=== PATIENT | female | born 1955 | race African-American/Black ===

== ENCOUNTER 2018-10-15 08:37 | Inpatient (IN) ==
[2018-10-15] MEDS ORDERED: DUONEB (A & A) INH ONE (09:10)
[2018-10-15] MEDS ORDERED: NS 1,000 ML IV ONE ×2 (09:10→13:06)
--- NOTE | 2018-10-15 09:13 | PROVIDER DOCUMENTATION ---
HPI-General Adult - General Chief Complaint: Shortness of Breath Stated Complaint: ASTHMA Time Seen by Provider: 10/15/18 08:56 Source: patient, family Allergies/Adverse Reactions: Patient Allergies Allergy/AdvReac Type Severity Reaction Status Date / Time nut - unspecified Allergy RASH Verified 09/11/18 20:20 celecoxib [From Celebrex] AdvReac VOMITING Verified 09/11/18 20:20 ? BP med Allergy Unknown Uncoded 09/11/18 20:20 Home Medications: Home Medication List Medication Instructions Recorded Confirmed Last Taken Type ATORVAstatin [Lipitor] 1 tab PO QPM 09/11/18 10/15/18 Unknown History Aspirin [Aspir-Low] 1 tab PO DAILY 09/11/18 10/15/18 Unknown History Carisoprodol [Soma] 1 tab PO TID 09/11/18 10/15/18 Unknown History Carvedilol Phosphate [Coreg Cr] 40 mg PO QHS 09/11/18 10/15/18 Unknown History Diphenhydramine [Benadryl] 2 cap PO QHS 09/11/18 10/15/18 Unknown History Hydrocodone/Acetaminophen [[place] 1 tab PO TID 09/11/18 10/15/18 Unknown History 10-325 Tablet] Lisinopril 1 tab PO QHS 09/11/18 10/15/18 Unknown History Omeprazole [Prilosec] 1 cap PO BID 09/11/18 10/15/18 Unknown History Tizanidine [Zanaflex] 1 tab PO TID 09/11/18 10/15/18 Unknown History Torsemide 40 tab PO DIRECTED 09/11/18 10/15/18 10/14/18 History 80mg Trospium Chloride [Trospium 1 cap PO DAILY 09/11/18 10/15/18 Unknown History Chloride ER] Benzonatate 1 tab PO TID PRN 10/15/18 10/15/18 Unknown History Ciprofloxacin HCl [Cipro] 500 mg PO BID #10 tab 10/15/18 Unknown Rx Ferrous Sulfate [Iron] 325 mg PO DAILY 10/15/18 10/15/18 Unknown History Insulin Degludec [Tresiba 30 units SUBQ DAILY 10/15/18 10/15/18 Unknown History Flextouch U-100] Ipratropium/Albuterol Sulfate 3 ml INHALATION Q4H 10/15/18 10/15/18 Unknown History [Iprat-Albut 0.5-3(2.5) mg/3 ml] Loratadine 1 tab PO DAILY 10/15/18 10/15/18 Unknown History Magnesium Oxide [Mag-Ox] 1 tab PO DAILY 10/15/18 10/15/18 Unknown History Ondansetron [Zofran] 8 mg PO TID PRN PRN 10/15/18 10/15/18 Unknown History Prochlorperazine [Compazine] 1 tab PO Q6H PRN 10/15/18 10/15/18 Unknown History Semaglutide [Ozempic] 0.25 mg SUBQ DIRECTED 10/15/18 10/15/18 Unknown History Sennosides [Senna Lax] 2 tab PO QHS PRN 10/15/18 10/15/18 Unknown History Tramadol [Ultram] 1 tab PO Q6H PRN 10/15/18 10/15/18 Unknown History - History of Present Illness -Gen Adult Nature of Presenting Problems: a 62 y/o female presents with c/o sob and weakness since this morning. The pt also has been having OSB with minimal exertion. Pt took some marijuana for her cancer pain and felt SOB And took a breathing treatment and it did not help so called EMS. Pt has cough here and there, denies any fever. Has some nausea and mild abd pain which is unchanged from before. denies any urinary symptoms. Pt completed her 3rd chemo cycle 12 days ago. Associated Symptoms: reports: cough, fatigue, nausea, shortness of breath. denies: chest pain, constipation, dizziness, fever/chills, genitourinary problems Review of Systems - Adult - REVIEW OF SYSTEMS - ADULT Constitutional: reports: see HPI Eyes: denies: no symptoms reported Ears, Nose, Mouth & Throat: denies: no symptoms reported Cardiovascular: reports: see HPI Respiratory: reports: see HPI Gastrointestinal: reports: see HPI Genitourinary: denies: no symptoms reported Musculoskeletal: denies: no symptoms reported Integumentary: denies: no symptoms reported Neurological: denies: no symptoms reported Psychiatric: denies: no symptoms reported Endocrine: denies: no symptoms reported Hematologic/Lymphatic: denies: no symptoms reported Allergic/Immunologic: denies: no symptoms reported Past History - Adult - PAST MEDICAL HISTORY-ADULT Review of Records: reports: Old Records Reviewed, Nursing Assessment Review, Medications Reviewed, Social history reviewed & non-contributory. Cardiovascular: reports: arrhythmia, CHF, pacemaker Genitourinary: reports: denies history Musculoskeletal: reports: denies history Neurological: reports: denies history Psychiatric: reports: denies history Endocrine/Immune: reports: denies history Other Conditions: reports: denies history Physical Exam-General - PHYSICAL EXAM-ADULT Initial Vital Signs Reviewed: Yes - CONSTITUTIONAL General Appearance: appears well, alert, no apparent distress - EYES Eyes: PERRL/EOMI - HEAD, EARS, NOSE, MOUTH & THROAT HENMT: normocephalic/atraumatic, normal ENT inspection, pharynx normal. negative: moist mucous membranes, pharyngeal erythema - NECK Neck: supple - RESPIRATORY Respiratory: lungs clear, normal breath sounds, no respiratory distress, no accessory muscle use - CARDIOVASCULAR Cardiovascular: regular rate, rhythm, no edema, no JVD, no murmur - GASTROINTESTINAL (ABDOMEN) Abdominal Exam: non tender, soft - MUSCULOSKELETAL Back Exam: no CVA tenderness, no vertebral tenderness Extremity: normal inspection, no pedal edema Peripheral Pulses: radial (R): 2+, radial (L): 2+ - SKIN Integumentary: normal color, warm/dry - NEUROLOGIC Neurologic: grossly normal, no motor/sensory deficits - PSYCHIATRIC Psych/Mental Status: normal mood/affect, normal thought content, normal thought process, oriented x 3 Progress - PLAN OF CARE/RESULTS Progress/Plan/Lab Results: Vital Signs - 8 hr 10/15/18 08:53 Temperature 98.0 F Pulse Rate 71 Respiratory Rate 16 Blood Pressure 103/65 O2 Sat by Pulse Oximetry 100 Orders Category Date Time Status CHEST-PORTABLE [RAD] Stat Exams 10/15/18 09:10 Ordered BLOOD CULTURE [BLDCUL] Stat Lab 10/15/18 09:10 Uncollected CBC WITH DIFF [HEME] Stat Lab 10/15/18 09:10 Uncollected COMPREHENSIVE METABOLIC PANEL [CHEM] Stat Lab 10/15/18 09:10 Uncollected LACTATE, PLASMA [CHEM] Stat Lab 10/15/18 09:10 Uncollected PRO B-NATRIURETIC PEPTIDE Stat Lab 10/15/18 09:11 Uncollected UA NIMS W/REFLEX CULT [URINALYSIS] Stat Lab 10/15/18 09:11 Uncollected Albuterol 2.5MG/Ipratrop 0.5MG [Duoneb (A & A)] Med 10/15/18 09:10 Once 3 ml INH NOW ONE Ns 1000 ml IV Bolus X1 Med 10/15/18 09:10 Ordered 0.9% Sodium Chloride Inj [Ns] 1,000 ml IV 999 mls/hr Aerosol Treatments Routine Oth 10/15/18 09:11 Ordered Aerosol Treatments Stat Oth 10/15/18 09:11 Ordered Pulse Oximetry Stat Oth 10/15/18 09:10 Ordered The pt has elevated BNP but no lung or peripheral findings of CHF on exam. Pt SOB and weakness improved after fluids. d/w Dr Felder oncology, will d/c on cipro and close f/u instructions. Result Diagrams: 10/15/18 09:18 10/15/18 09:18 - REASSESSMENT Reassessment #1 Time Reassessed: 12:30 Status: other (pt was about to be discharged and his discharge vitals revealed a SBP in 60's. will administer a 500 cc slowly as pt has elevated BNP and reevaluate.) Reassessment #2 Time Reassessed: 14:20 Status: unchanged (will admit, start levaquin. continue IVF ad monitor BNP. Hospitalist paged.) - EKG 1 Time of EKG reading by physician:: 09:16 EKG Read and Signed by:: Jerome Kwan EKG Interpretation (*Must complete 3 of following elements*): Abnormal Rate: 69 Rhythm: SINUS RHYTHM WITH FREQUENT PREMATURE VENTRICULAR COMPLEXES [place]: normal QRS: LBB CA Interval: normal Comments: ABNORMAL ECG 2 Time of EKG reading by physician:: 14:05 EKG Read and Signed by:: Jerome Kwan EKG Interpretation (*Must complete 3 of following elements*): Abnormal Rate: 69 Rhythm: sinus rhythm with frequent premature ventricular complexes [place]: normal CA Interval: normal Comments: nonspecific ST and T wave abnormality; prolonged QT - CONSULTS/PCP/HOSPITALIST Notification #1 *Consult/PCP/Hospitalist*: d/w Dr Felder, Oncology Time Discussed: 12:00 Consult Disposition: other (advised prophylactic abxs, po cipro 500 bid x5 days. f/u with PCP.) #2 Consult: NEIDA Magdaleno for hospitalist Time Discussed: 15:10 Consult Disposition: Admit Departure - Departure Date of Disposition Decision: 10/15/18 Time of Disposition Decision: 15:00 DIAGNOSIS: Neutropenia, Dehydration, Generalized weakness, Elevated brain natriuretic peptide (BNP) level, Hypotension Disposition: ADMITTED INPATIENT Certified Medical Emergency: Emergent Condition: Stable Prescriptions: Ciprofloxacin HCl [Cipro] 500 mg PO BID #10 tab Referrals and Follow-Ups: None,PCP [Primary Care Provider] - Discharge Education: Dehydration, Adult, [id number], Neutropenia - Critical Care Note This patient required my direct & personal management of CC.: No Attestation - Physician/ RIO Attestation Patient care was provided by Advanced Practice Provider:: No The physician spent face to face time with patient:: Yes Advanced Practice Provider documentation review:: Supervising physician onsite and consulted in the evaluation and care of this patient. The physician did have a face to face encounter with the patient.
--- NOTE | 2018-10-15 09:41 | Diag Imaging Result Doc PS360 ---
CHEST-PORTABLE - 10/15/2018 INDICATION: cough COMPARISON: 09/11/2018 FINDINGS: Stable left-sided pacemaker. Stable mild cardiomegaly. Pulmonary vascularity is top normal. Lung volumes are severely low. No obvious infiltrates or edema. IMPRESSION: Cardiomegaly. Low lung volumes. Electronically signed by Osiel Melchor 10/15/2018 9:39 AM
[2018-10-15 10:04] LABS: BASO# 0.01 X1000 (0.0-0.2); BASO% 0.3 % (0.0-0.8); EOS# 0.03 X1000 (0.0-0.7); LYMPH# 2.47 X1000 (1.2-3.4); LYMPH% 80.2 % (20.5-51.1); MCH 29.9 PG (27-31); MCHC 33.3 g/dL (33-37); MCV 89.7 FL (81-99); MONO# 0.45 X1000 (0.11-0.59); MONO% 14.6 % (1.7-9.3); MPV 11.4 FL (7.4-10.4); NEUT# 0.12 X1000 (1.4-6.5); NEUT% 3.9 % (42.2-75.2); PLT 135 X1000 (130-400); RBC 3.68 XMIL (4.2-5.4); WBC 3.08 X1000 (4.8-10.8)
[2018-10-15 10:12] LABS: ALB/GLOB RATIO 1.5; ALBUMIN 3.7 g/dL (3.5-5.0); CALCIUM 8.9 mg/dL (8.8-10.2); CREATININE 1.2 mg/dL (0.5-0.9); POTASSIUM 4.2 mmol/L (3.5-5.1); TOTAL BILIRUBIN 0.3 mg/dL (0.20-1.00); TOTAL PROTEIN 6.2 g/dL (6.3-8.3)
[2018-10-15 10:17] LABS: URINE SOURCE CATH
[2018-10-15 10:19] LABS: BILIRUBIN URINE NEGATIVE (NEGATIVE); BLOOD URINE NEGATIVE (NEGATIVE); COLOR YELLOW; GLUCOSE URINE NEGATIVE (NEGATIVE); KETONE URINE NEGATIVE (NEGATIVE); LEUKOCYTES URINE NEGATIVE (NEGATIVE); NITRITE URINE NEGATIVE (NEGATIVE); PROTEIN URINE TRACE mg/dL (NEGATIVE); SP GRAVITY URINE 1.019; TURBIDITY URINE CLEAR (CLEAR); UROBILINOGEN URINE 2 mg/dL (NORMAL)
[2018-10-15 10:20] LABS: UR EPITHELIAL CELLS <10 /HPF (<10); URINE BACTERIA NEGATIVE /HPF; URINE RBC <10 /HPF (<10); URINE WBC <10 /HPF (<10)
[2018-10-15 10:37] LABS: HOWELL-JOLLY BODIES OCCASIONAL; LYMPHS 80 % (21-51); MONO 15 % (1-9); SEGS 5 % (42-75)
[2018-10-15 10:38] LABS: ANISOCYTOSIS 1+
[2018-10-15] MEDS ORDERED: DUONEB (A & A) INH PRN (15:56)
[2018-10-15] MEDS ORDERED: ROBITUSSIN-AC PO PRN (15:57)
[2018-10-15 16:06] LABS: UR AMPHETAMINES QUAL NONE DETECTED (NONE DETECT); UR BARBITUATES QUAL NONE DETECTED (NONE DETECT); UR BENZODIAZEPIN QUAL NONE DETECTED (NONE DETECT); UR CANNABINOIDS QUAL PRESUMPTIVE POSITIVE (NONE DETECT); UR COCAINE QUAL NONE DETECTED (NONE DETECT); UR METHADONE QUAL NONE DETECTED (NONE DETECT); UR OPIATES QUAL PRESUMPTIVE POSITIVE (NONE DETECT); UR OXYCODONE QUAL NONE DETECTED (NONE DETECT); UR PCP QUAL NONE DETECTED (NONE DETECT)
[2018-10-15] MEDS: HUMALOG SUBQ SCH ×2 (16:30→22:48)
[2018-10-15] MEDS ORDERED: SODIUM CHLORIDE 0.9% INJ SCH (17:00)
[2018-10-15] MEDS: LEVAQUIN 750 MG/D5W 750 MG/150 ML IVPB IV SCH (17:58)
[2018-10-15] MEDS: SOLU-MEDROL IV SCH ×2 (18:00→22:47)
[2018-10-15] MEDS ORDERED: LEVOPHED 8 MG in D5 1/2 NS 250 ML IV PRN (19:12)
[2018-10-15] MEDS: DUONEB (A & A) INH SCH ×2 (19:14→23:22)
[2018-10-15] MEDS ORDERED: LOVENOX 1 MG/KG SUBQ ONE (19:17)
[2018-10-15] MEDS ORDERED: LOVENOX SUBQ ONE (19:30)
--- NOTE | 2018-10-15 20:17 | HISTORY AND PHYSICAL ---
CHIEF COMPLAINT: Shortness of breath. HISTORY OF PRESENT ILLNESS: This is a 62-year-old female with a history of liver and ovarian cancer currently on chemotherapy, having her 3rd cycle 12 days ago. She reports being diagnosed with URI, bronchitis and Asthma exacerbation 2 days prior to chemo. She was given a steroid Dosepak and Augmentin. She reports completing the Augmentin prescription. She has been more tired and weak over the last few days. .This morning she was smoking marijuana for her cancer pain and she had a sudden onset of shortness of breath, feeling that she was not going to take her next breath. She called EMS. She was placed on oxygen en route. She stated that she felt much better after having oxygen in fact at the time of my exam she was concerned about having to take it off. She was given a neb treatment en route as well as one on arrival to the emergency room. Chest x-ray revealed cardiomegaly with low lung volumes. PAST MEDICAL HISTORY: 1. Asthma. 2. Uterine and liver cancer. 3. Congestive heart failure subsequent pacemaker and defibrillator, cardiomegaly, ventricular dysrhythmias. PAST SURGICAL HISTORY: Cataract removal, gastric bypass, pacemaker, defibrillator placement. SOCIAL HISTORY: She smokes marijuana daily. She denies any alcohol or tobacco use. ALLERGIES: Nuts that cause rash, Celebrex causes vomiting and blood pressure medicine that causes an unknown reaction with unknown blood pressure medicine. HOME MEDICATIONS: A list will be obtained by the nursing staff and once verified will be restarted as appropriate. REVIEW OF SYSTEMS: Discussed with patient with pertinent positives stated in the HPI. She denied any syncope or dizziness, any chest pain or palpitations, any nausea, vomiting, diarrhea, constipation, black or bloody vomitus or stools, any hematuria, dysuria, frequency, urgency. PHYSICAL EXAMINATION: GENERAL: This is a 62-year-old female who is lying on the stretcher in the emergency room in mild distress. VITAL SIGNS: Blood pressure is 109/63 with a heart rate 75, respirations are 16, temperature is 98 degrees with O2 saturations 96 to 100 percent on 4 L nasal cannula. HEENT: Head is normocephalic, atraumatic. Mucous membranes are dry. NECK: Supple with trachea midline. No JVD. CARDIOVASCULAR: Regular rate and rhythm. S1 and S2 are appreciated. Calves are nontender bilateral with peripheral pulses palpable x4 extremities. PULMONARY: Breath sounds she does have some expiratory wheezes scattered throughout. Chest rises and falls symmetric with respiration. She does have mild increased work of breathing. She has persistent cough. GASTROINTESTINAL: Soft, nontender, nondistended. Bowel sounds in all 4 quadrants. GENITOURINARY: She has no CVA or suprapubic tenderness. SKIN: Warm and dry. NEUROLOGIC: She is alert and oriented. LABS: WBC is 3 with hemoglobin 11, hematocrit 33 and platelets of 135,000, neutrophils are 0.12. D-dimer is 0.76. Sodium 142, potassium 4.2, BUN 26, creatinine 1.2 with a glucose of 150. Troponins are negative. Urine drug screen is positive for opiates and cannabinoids. Urinalysis is essentially negative. Blood culture is pending. Chest x-ray reveals cardiomegaly with low lung volumes. ASSESSMENT AND PLAN: 1. Neutropenia in a patient who is 10 to 12 days status post chemotherapy. 2. Dehydration. 3. Generalized weakness. Ms Mcdonnell states that she is not able to get out of bed or stand due to this weakness. At the time of my interview she has to have help turning herself over from side to side in the bed. 4. Hypotension. 5. History of congestive heart failure status post implantable cardioverter defibrillator due to reported ejection fraction and ventricular dysrhythmias. 6. Uterine and liver cancer currently receiving chemotherapy. She is 12 days status post being followed by the [facility]. 7. Diabetes mellitus. 8. Hypertension. 9. Degenerative back disease with chronic pain on chronic [place]. PLAN: The patient will be admitted to ICU with telemetry. Levophed for a MAP less than 60. obtain an echocardiogram. attempt to obtain her records from hospital in [place] identify her home medications and continue as appropriate pattern blood glucose with sliding scale insulin. trend her troponin and cardiac profile. DuoNeb q.4 hours and q.2 hours p.r.n. peak flows. low-dose steroids, Mucinex DM b.i.d.,Robitussin AC for her cough neutropenic precautions with a neutropenic diet. Plan was discussed with Dr. Tran. Further treatments pending hospital course. Patient seen and examined by me face to face, all the laboratory, vitals signs and images were reviewed, patient presented to the emergency department with shortness of breath, that has been going on for a couple weeks, she also received chemotherapy around that time, she has been having more weakness, she fells better with the oxygen supplementation, she has a borderline low blood pressure, she will probably need pressors, steroids and antibiotics, breathing treatment, we will monitor this patient closely in the ICU, I agree with the MATERIALS HANDLER's assessment and plan, Yfn Green MD. Dictated by NEIDA Aldrich for Yfn Duke MD cc: NEIDA Aldrich MD [facility]
[2018-10-16] MEDS: NORCO-10 PO PRN ×3 (01:31→17:05)
[2018-10-16] MEDS: DUONEB (A & A) INH SCH ×4 (03:30→16:03)
[2018-10-16 04:55] LABS: BASO# 0.01 X1000 (0.0-0.2); BASO% 1.1 % (0.0-0.8); HEMATOCRIT 30.9 % (37.0-47.0); HEMOGLOBIN 10.4 g/dL (12.0-16.0); LYMPH# 0.58 X1000 (1.2-3.4); LYMPH% 65.9 % (20.5-51.1); MCH 29.8 PG (27-31); MCHC 33.7 g/dL (33-37); MCV 88.5 FL (81-99); MONO# 0.14 X1000 (0.11-0.59); MONO% 15.9 % (1.7-9.3); MPV 11.2 FL (7.4-10.4); NEUT% 17.1 % (42.2-75.2); PLT 140 X1000 (130-400); RBC 3.49 XMIL (4.2-5.4); RDW 14.7 % (11.5-14.5); WBC 0.88 X1000 (4.8-10.8)
[2018-10-16 04:57] LABS: NEUT# 0.15 X1000 (1.4-6.5)
[2018-10-16 05:19] LABS: AGAP 11; ALBUMIN 3.4 g/dL (3.5-5.0); BUN 17 mg/dL (8-22); CALCIUM 9.1 mg/dL (8.8-10.2); CHLORIDE 102 mmol/L (98-107); COSMO 284; CREATININE 0.8 mg/dL (0.5-0.9); ESTIMATED GFR > 60; GLUCOSE 224 mg/dL (70-104); PHOSPHORUS 3.7 mg/dL (2.7-4.5); POTASSIUM 4.9 mmol/L (3.5-5.1); SODIUM 138 mmol/L (136-145); TCO2 25 mmol/L (25-35)
[2018-10-16] MEDS: SOLU-MEDROL IV SCH ×4 (06:14→20:51)
[2018-10-16] MEDS: PROTONIX IV SCH (06:14)
[2018-10-16] MEDS: HUMALOG SUBQ SCH ×4 (06:14→21:06)
[2018-10-16] MEDS ORDERED: SENOKOT PO PRN (07:25)
--- NOTE | 2018-10-16 08:13 | PROGRESS NOTE ---
DATE: 10/16/2018 SUBJECTIVE: As per the patient, she feels a little bit better. She is tolerating a little bit better p.o. and she still coughing but not like yesterday. I will put this patient back on some of her home medications. She has a history of CHF, status post implantable cardioverter- defibrillator. I have requested an echocardiogram for this patient. Her D-dimer is slightly elevated at 0.76. A venous Doppler ultrasound of the lower extremities has been requested as well as a V/Q scan. Yesterday, she came in with acute kidney injury. She is neutropenic. She has been getting chemotherapy. Her last chemotherapy was a couple weeks ago. I have requested an evaluation by hematology/oncology department. OBJECTIVE: Vital Signs: Temperature 96, pulse 67, respiratory rate 17, blood pressure 108/62, oxygen saturation 96% on 2 L of nasal cannula. HEENT: Head normocephalic. No trauma. PERRLA. Neck: Supple. No JVD. Central trachea. Chest: Decreased breath sounds, mostly at the bases. She does have some expiratory wheezing that is scattered throughout. Some crepitus at the bases as well. Abdomen: Soft, nontender, nondistended. No hepatosplenomegaly. Extremities: No clubbing. No cyanosis. Neurological Examination: This patient is sleepy but arousable. She is alert. She is oriented x3. She is following commands. Laboratory: WBC 0.8, hemoglobin 10.4, hematocrit 30.9, platelets 140,000, neutrophil count 0.15. Sodium 138, potassium 4.9, chloride 102, bicarbonate 25, BUN 17, creatinine 0.8, glucose 224, calcium 9.1, phosphorus 3.7, albumin 3.4. ASSESSMENT AND PLAN: 1. Bronchitis with asthma exacerbation. It looks like the treatment is working fine for her. I will continue with antibiotics, breathing treatments, oxygen supplementation, pulmonary toilet. 2. Neutropenia in a patient that is status post chemotherapy 2 weeks ago. She moved recently to this area and she does not have a timber buyer/oncologist here so I will consult Dr. Felder to evaluate this patient. 3. Dehydration. She looks hydrated today. Resolved. 4. Acute kidney injury, resolved. I will put her back on her home medications. 5. Hypotension, improved after fluid resuscitation. I will hold her torsemide today and I will start this treatment tomorrow. 6. Metastatic uterine cancer to the liver, status post chemotherapy. She has been followed by the [facility] at [facility] [place]. 7. History of congestive heart failure, status post implantable cardioverter/defibrillator, due to reported low ejection fraction and ventricular dysrhythmia. I will get an echocardiogram. We also requested some records. 8. Type 2 diabetes. She has not been eating too much recently. I will continue with sliding scale insulin and pattern of blood sugar. Her blood sugar increased compared with yesterday. It is above 200 so I will start this patient also on her home medication, insulin degludec, and I will monitor. 9. Hypertension. Actually, this patient has been hypotensive. Better after fluid resuscitation. We will monitor the blood pressure. 10. Degenerative back disease and chronic pain, on chronic [place]. CRITICAL CARE TIME: Thirty minutes. cc: Yfn Duke MD
[2018-10-16] MEDS: MUCINEX DM PO SCH ×3 (08:32→20:51)
[2018-10-16] MEDS: ZOFRAN IV PRN (08:33)
[2018-10-16] MEDS: ASPIRIN EC PO SCH (08:33)
[2018-10-16] MEDS: DEMADEX PO SCH (08:33)
[2018-10-16] MEDS: CLARITIN PO SCH (08:33)
[2018-10-16] MEDS: TRESIBA FLEXTOUCH U-100 SUBQ SCH (08:34)
[2018-10-16] MEDS: MAG-OX PO SCH (08:34)
[2018-10-16] MEDS: SOMA PO SCH ×3 (08:34→16:56)
--- NOTE | 2018-10-16 08:53 | EKG Report ---
Test Performed on : 10/15/2018 2:05:37 PM Test Reason : ED. No order in [place] Blood Pressure : / mmHG Vent. Rate : 069 BPM Atrial Rate : 069 BPM P-R Int : 178 ms QRS Dur : 104 ms QT Int : 452 ms P-R-T Axes : 052 -18 104 degrees QTc Int : 484 ms Sinus rhythm. with frequent premature ventricular complexes. Nonspecific ST and T wave abnormality Prolonged QT Abnormal ECG When compared with ECG of 15-OCT-2018 09:16, (Unconfirmed) Left bundle branch block is no longer present Unconfirmed Result
--- NOTE | 2018-10-16 08:53 | EKG Report ---
Test Performed on : 10/15/2018 09:16:38 AM Test Reason : sob Blood Pressure : / mmHG Vent. Rate : 069 BPM Atrial Rate : 069 BPM P-R Int : 184 ms QRS Dur : 168 ms QT Int : 446 ms P-R-T Axes : 056 -12 090 degrees QTc Int : 477 ms Sinus rhythm. with frequent premature ventricular complexes. Left bundle branch block Abnormal ECG When compared with ECG of 11-SEP-2018 19:44, (Unconfirmed) No significant change was found Unconfirmed Result
--- NOTE | 2018-10-16 09:52 | ECHO REPORT ---
ORDER DATE: 10/15/2018 INTERPRETING PHYSICIAN: Dr. Abel REQUESTING PHYSICIAN: CLINICAL INDICATIONS: This is a 62-year-old female with CHF, dyspnea. M-MODE MEASUREMENTS: Right ventricle: cm. Left ventricle end diastole: 6.6 cm. Left ventricle end systole: 6.0 cm. Posterior wall: 1.1 cm. Interventricular septum: 1.3 cm. Left atrium: 5.6 cm. Aortic root: 2.5 cm. SUMMARY OF 2-DIMENSIONAL IMAGIN. The left ventricular function is significantly impaired, estimated at 25% to 30%. There is segmental and global wall motion abnormality. The segmental abnormality appears to be involving the inferior wall. The remaining portion of the left ventricle is significantly hypokinetic and the chamber is Left ventricular chamber is markedly dilated. 2. Right ventricle is mild to moderately enlarged. 3. The left atrium is moderately to significantly dilated. 4. The aortic valve has 3 cusps, they open normally. Color flow mapping is unremarkable. 5. Pulmonic valve appears to be grossly unremarkable. 6. The tricuspid valve shows minimal degree of regurgitation. 7. Pulmonary pressure could not be accurately calculated because of minimal jet of regurgitation. 8. The inferior vena cava is not dilated. 9. Mitral annulus shows some calcification. 10.Color flow mapping of mitral valve indicates moderate degree of regurgitation. 11.The tissue Doppler of septal and lateral mitral annulus averages 2 cm. 12.There is significantly impaired diastolic function. 13.There is no pericardial effusion, mass or thrombus. 14.Optison was added to optimize visualization of endocardium. CONCLUSIONS: In summary, this study shows: 1. Abnormal study with markedly dilated left ventricle with significantly impaired systolic function in the range of 25% to 30% with segmental and global wall motion abnormality. 2. Diastolic dysfunction. 3. Pulmonary pressure probably normal. 4. Unremarkable aortic valve. 5. Moderate mitral regurgitation. 6. Significant enlargement of left atrium. Clinical correlation is recommended. cc: MD Dana Ruvalcaba CRNP MTDD
--- NOTE | 2018-10-16 10:36 | Diag Imaging Result Doc PS360 ---
LUNG SCAN / VQ - 10/16/2018 INDICATION: dyspnea, cough, elevated ddimer TECHNIQUE: 41.2 mCi of DTPA was used for inhalation. 6.4 mCi of MAA was used for injection. COMPARISON: Chest x-ray 10/15/2018 FINDINGS: There is normal localization of the radiotracer's. There is no pulmonary perfusion defect. IMPRESSION: Negative for pulmonary embolism. Electronically signed by Osiel Melchor 10/16/2018 10:34 AM
[2018-10-16] MEDS: LEVAQUIN 750 MG/D5W 750 MG/150 ML IVPB IV SCH (16:56)
[2018-10-16] MEDS: LIPITOR PO SCH (20:50)
[2018-10-16] MEDS: BENADRYL PO SCH (20:50)
[2018-10-16] MEDS ORDERED: COREG CR PO SCH (21:00)
[2018-10-16] MEDS ORDERED: PRINIVIL PO SCH (21:00)
[2018-10-17] MEDS: SOLU-MEDROL IV SCH ×5 (03:56→20:28)
[2018-10-17] MEDS: NORCO-10 PO PRN ×2 (04:04→13:47)
[2018-10-17] MEDS: DUONEB (A & A) INH SCH ×7 (05:05→22:34)
[2018-10-17] MEDS: HUMALOG SUBQ SCH ×4 (06:09→21:33)
[2018-10-17] MEDS: PROTONIX IV SCH (06:09)
[2018-10-17 06:29] LABS: HEMOGLOBIN 10.4 g/dL (12.0-16.0); RBC 3.53 XMIL (4.2-5.4); WBC 1.75 X1000 (4.8-10.8)
[2018-10-17 06:30] LABS: HEMATOCRIT 31.5 % (37.0-47.0); LYMPH# 0.67 X1000 (1.2-3.4); LYMPH% 38.3 % (20.5-51.1); MCH 29.5 PG (27-31); MCV 89.2 FL (81-99); MONO# 0.52 X1000 (0.11-0.59); MONO% 29.7 % (1.7-9.3); MPV 11.3 FL (7.4-10.4); NEUT# 0.56 X1000 (1.4-6.5); PLT 150 X1000 (130-400); RDW 14.9 % (11.5-14.5)
[2018-10-17 06:39] LABS: ALB/GLOB RATIO 1.5; ALBUMIN 3.5 g/dL (3.5-5.0); CALCIUM 8.9 mg/dL (8.8-10.2); CREATININE 1.3 mg/dL (0.5-0.9); PHOSPHORUS 5.1 mg/dL (2.7-4.5); POTASSIUM 5.1 mmol/L (3.5-5.1); TOTAL BILIRUBIN 0.26 mg/dL (0.20-1.00); TOTAL PROTEIN 5.9 g/dL (6.3-8.3)
--- NOTE | 2018-10-17 07:05 | Diag Imaging Result Doc PS360 ---
CHEST-PORTABLE - 10/17/2018 INDICATION: dyspnea COMPARISON: 10/15/2018 FINDINGS: Stable left-sided pacemaker. Stable moderate cardiomegaly. Stable mild pulmonary vascular congestion. No infiltrates or edema. No significant pleural effusion. IMPRESSION: Cardiomegaly and pulmonary vascular congestion. Electronically signed by Osiel Melchor 10/17/2018 7:03 AM
[2018-10-17 07:29] LABS: LYMPHS 40 % (21-51); MONO 8 % (1-9); SEGS 52 % (42-75)
[2018-10-17] MEDS ORDERED: INSULIN PEN NEEDLES ONE (07:59)
[2018-10-17] MEDS: ZOFRAN IV PRN (08:26)
[2018-10-17] MEDS: MAG-OX PO SCH (09:58)
[2018-10-17] MEDS: TRESIBA FLEXTOUCH U-100 SUBQ SCH (09:58)
[2018-10-17] MEDS: SOMA PO SCH ×2 (09:58→13:47)
[2018-10-17] MEDS: CLARITIN PO SCH (09:58)
[2018-10-17] MEDS: ASPIRIN EC PO SCH (09:58)
[2018-10-17] MEDS: MUCINEX DM PO SCH ×2 (09:59→20:26)
[2018-10-17] MEDS: MIRALAX PO SCH (12:21)
[2018-10-17] MEDS: LACTULOSE PO SCH ×2 (12:21→20:28)
[2018-10-17] MEDS ORDERED: GRANIX SUBQ SCH (14:45)
[2018-10-17] MEDS ORDERED: SOMA PO PRN (14:48)
--- NOTE | 2018-10-17 16:29 | PROGRESS NOTE ---
DATE: 10/17/2018 SUBJECTIVE: She has no major complaints. She is pretty content. OBJECTIVE: Vital signs: Blood pressure 101/56, heart rate 75, respiratory rate 15, temperature was 97.5 degrees. Cardiovascular: Regular rate and rhythm. Pulmonary: Bilateral breath sounds. Clear to auscultation. Gastrointestinal: Soft, nontender, nondistended. Bowel sounds were positive. vital signs: Blood pressure 92/56, heart rate 69, respiratory 15, temperature 97.5 degrees. LABORATORY DATA: White count has come up it is 0.88 with a very low neutrophil count and now it is down to 1.75. Other data, hemoglobin and hematocrit 10 and 30, platelets of 150,000. Creatinine is 1.3. The patient is doing okay. PROBLEM LIST: 1. Bronchitis. Overall seems better. I think we could probably wean her steroids. 2. Neutropenia. She is improving. I think Dr. Rachel has been consulted. She has a history of metastatic uterine cancer. 3. Negative transient hypotension. We will have to be kind of careful with her blood pressure medicines I do not get a sense she is that. She is on a fairly high dose of Coreg and lisinopril and she is on Soma, need to kind of adjust her medications. I may back down on her Coreg a little bit, probably hold her lisinopril for the time being. 4. CHF. I she think she may have a history of CHF. We will adjust her medicines and follow. cc: Jorge L Costa MD MTDD
[2018-10-17] MEDS: LEVAQUIN 750 MG/D5W 750 MG/150 ML IVPB IV SCH (16:58)
[2018-10-17] MEDS: COREG PO SCH (20:25)
[2018-10-17] MEDS: BENADRYL PO SCH (20:26)
[2018-10-17] MEDS: LIPITOR PO SCH (20:27)
[2018-10-17] MEDS: PRINIVIL PO SCH (21:39)
[2018-10-18] MEDS: SOLU-MEDROL IV SCH ×3 (03:15→21:00)
[2018-10-18] MEDS: DUONEB (A & A) INH SCH ×6 (03:38→23:48)
[2018-10-18 06:21] LABS: HEMATOCRIT 30.4 % (37.0-47.0); HEMOGLOBIN 10.1 g/dL (12.0-16.0); IMM GRAN# 0.04 X1000 (0.0-0.04); IMM GRAN% 1.2 % (0.0-0.5); LYMPH# 1.01 X1000 (1.2-3.4); LYMPH% 30.7 % (20.5-51.1); MCHC 33.2 g/dL (33-37); MCV 90.2 FL (81-99); MONO# 0.65 X1000 (0.11-0.59); MONO% 19.8 % (1.7-9.3); MPV 10.9 FL (7.4-10.4); NEUT# 1.59 X1000 (1.4-6.5); NEUT% 48.3 % (42.2-75.2); PLT 141 X1000 (130-400); RBC 3.37 XMIL (4.2-5.4); RDW 15.3 % (11.5-14.5); WBC 3.29 X1000 (4.8-10.8)
[2018-10-18] MEDS: HUMALOG SUBQ SCH ×4 (06:29→22:00)
[2018-10-18 06:47] LABS: AGAP 10; BUN 19 mg/dL (8-22); CALCIUM 8.8 mg/dL (8.8-10.2); CHLORIDE 100 mmol/L (98-107); COSMO 282; CREATININE 1.1 mg/dL (0.5-0.9); ESTIMATED GFR > 60; GLUCOSE 169 mg/dL (70-104); POTASSIUM 4.9 mmol/L (3.5-5.1); SODIUM 138 mmol/L (136-145); TCO2 28 mmol/L (25-35)
[2018-10-18] MEDS: PRILOSEC PO SCH (06:49)
--- NOTE | 2018-10-18 07:30 | Extremity Venous Study ---
PROCEDURE NAME: Venous U/S Bilateral Legs - 10/16/2018 PROCEDURE PERFORMED: Bilateral lower extremity venous duplex and color flow imaging study using a [email or web address] Vivid E9 ultrasound system with a 9 L-D transducer. REFERRING PHYSICIAN: Scot. A 62-year-old female. DRIVER MANAGER: Jaqueline Huffman RVT. INDICATIONS: Leg pain and cramping with an elevated D-dimer. The patient is receiving chemotherapy. FINDINGS: The right common femoral vein and its branches, deep and superficial femoral veins were satisfactorily imaged. They had flow through them and were compressible. The right popliteal vein and the deep veins below the right knee were all compressible and had flow through them. The superficial veins in the right lower extremity were compressible throughout their length. The left common femoral vein and its branches, deep and superficial femoral veins were also satisfactorily imaged. They had flow through them and were compressible. The left popliteal vein and the deep veins below the left knee were all compressible and had flow through them. The superficial veins of the left lower extremity were compressible throughout their length. INTERPRETATION: No evidence of acute deep or superficial venous thrombosis of the bilateral lower extremities. cc: MD Dana Laguerre CRNP
[2018-10-18] MEDS: ZOFRAN IV PRN (07:50)
[2018-10-18] MEDS: NORCO-10 PO PRN (07:55)
[2018-10-18] MEDS: PRINIVIL PO SCH (09:48)
[2018-10-18] MEDS: CLARITIN PO SCH (09:49)
[2018-10-18] MEDS: LACTULOSE PO SCH ×3 (09:49→21:00)
[2018-10-18] MEDS: ASPIRIN EC PO SCH (09:49)
[2018-10-18] MEDS: MAG-OX PO SCH (09:49)
[2018-10-18] MEDS: MUCINEX DM PO SCH ×2 (09:49→21:01)
[2018-10-18] MEDS: COREG PO SCH ×2 (09:49→21:01)
[2018-10-18] MEDS: TRESIBA FLEXTOUCH U-100 SUBQ SCH (09:49)
[2018-10-18] MEDS: DEMADEX PO SCH (09:49)
[2018-10-18] MEDS: MIRALAX PO SCH (09:49)
--- NOTE | 2018-10-18 11:42 | PROGRESS NOTE ---
DATE: 10/18/2018 SUBJECTIVE: The patient reports feeling fine. Denies any fever or chills. OBJECTIVE: Vital Signs: Temperature 98.3 degrees, heart rate 79, respiratory rate 14, blood pressure 117/68, O2 saturation 99% on room air. General: This is a chronically ill-looking, 62- year-old, female, lying in bed in no acute distress. Cardiovascular: S1, S2 heard. No murmurs, gallops, or rubs. Regular rate and rhythm. Respiratory: Clear bilaterally to auscultation. No work of breathing or using accessory muscles. Abdomen: Soft, nontender to palpation. Bowel sounds present. No organomegaly. Extremities: No clubbing, cyanosis, or edema. Peripheral pulses present in both legs. Neurologic: The patient is alert and oriented x3. Moves all 4 extremities. LABORATORY DATA: White cell count 3.39, hemoglobin 10.1, hematocrit 30.4, platelets 141,000. Normal BMP. ASSESSMENT AND PLAN: 1. Acute bronchitis. Clinically, this patient is doing fine. She reports good improvement with the steroids. The patient is on Levaquin. Will continue with the same management. 2. Neutropenia. I think the condition is much better. The patient has history of metastatic uterine cancer. 3. Hypotension, resolved. Will continue with the current medications. 4. Chronic congestive heart failure. The patient is feeling fine. Denies any shortness of breath. 5. Cardiomegaly with pulmonary vascular congestion. Here in the hospital, she is receiving torsemide 40 mg by mouth every 48 hours. Will continue with the same management. cc: Malcom Colorado MD [facility]
[2018-10-18] MEDS: XANAX PO PRN ×2 (14:59→21:00)
[2018-10-18] MEDS: LEVAQUIN 750 MG/D5W 750 MG/150 ML IVPB IV SCH (16:43)
--- NOTE | 2018-10-18 19:49 | HEMO/ONC CONSULTATION ---
DATE: 10/18/2018 REASON FOR CONSULTATION: Consultation requested by the Hospitalist service. Consultation is for metastatic uterine cancer, patient currently on chemotherapy. HISTORY OF PRESENT ILLNESS: Ms. Mcdonnell is a 62-year-old female who is currently receiving chemotherapy treatments for her metastatic uterine cancer down at the [facility]. It looks like she presented to the emergency department with an upper respiratory infection, bronchitis and acute asthma exacerbation. She was found to have neutropenia as well upon workup. She has now been admitted for further evaluation and treatment. We have been consulted to assist as local oncologist, as her primary oncologist is at [facility]. PAST MEDICAL HISTORY: 1. Positive for asthma. 2. Uterine cancer. This has metastasized. She is currently receiving chemotherapy at [facility]. 3. Congestive heart failure. Status post pacemaker and defibrillator placement. PAST SURGICAL HISTORY: 1. Cataract removal. 2. Gastric bypass. 3. Pacemaker and defibrillator placement. SOCIAL HISTORY: The patient smokes marijuana daily to help with her symptoms and side effects of chemotherapy and cancer. She denies any alcohol or tobacco use. FAMILY HISTORY: No family history of cancer. REVIEW OF SYSTEMS: Twelve point review of systems has been completed and is negative except for as expressed in the HPI. PHYSICAL EXAMINATION: Vital Signs: Temperature 98.1 degrees, heart rate 86, respirations 17, blood pressure 116/73, O2 saturation 100% on room air. General: This is an female lying in her hospital bed. She is in no acute distress at this time. HEENT: Head normocephalic, atraumatic. Eyes: Pupils equal, round, reactive. Ears, nose, throat, neck, mouth mucosa appears to be normal. Cardiovascular: S1, S2 heard. Respiratory: No respiratory effort. Gastrointestinal: Is nondistended. Musculoskeletal: No obvious bony abnormalities. Extremities: Some trace edema. Neurologic: Patient is alert and oriented. No focal motor deficits. LABS AND STUDIES: White blood cells 3.29, hemoglobin 10.1, platelet count 141,000, ANC is 1.5. ASSESSMENT AND PLAN: 1. Metastatic uterine cancer. The patient will need to follow back up at [facility]. They will need to be the ones to make the decision when she can receive her next cycle of treatment. [facility] is her primary oncologist. 2. Neutropenia, resolved. The patient's neutrophil count is now normal. No longer need to do neutropenic precautions. No longer need to do any growth factor support. 3. Acute bronchitis with acute asthma exacerbation. Continue nebulizer treatments. Seems to be improving. Continue management per the primary team. 4. Hypotension, resolved. Continue current management. I want to thank you for consulting us. We will continue to follow along with Ms. Mcdonnell while she is here at [facility]. She will need to follow up with [facility] after she leaves the hospital for further treatment planning and decisions in regards to her metastatic uterine cancer. Dictated by BRIDGETT Moeller for Alexandra Matthews MD cc: Alexandra Matthews MD I have seen and examined the patient and agree with the above note which reflects my history, physical exam, assessment and plan. Alexandra NAVA
[2018-10-18] MEDS: LIPITOR PO SCH (21:00)
[2018-10-18] MEDS: BENADRYL PO SCH (21:00)
[2018-10-19] MEDS: DUONEB (A & A) INH SCH ×4 (03:57→15:40)
[2018-10-19] MEDS: SOLU-MEDROL IV SCH ×2 (04:50→12:25)
[2018-10-19 04:57] LABS: BASO# 0.01 X1000 (0.0-0.2); BASO% 0.2 % (0.0-0.8); HEMATOCRIT 33.8 % (37.0-47.0); HEMOGLOBIN 11.1 g/dL (12.0-16.0); IMM GRAN# 0.08 X1000 (0.0-0.04); IMM GRAN% 1.3 % (0.0-0.5); LYMPH# 3.34 X1000 (1.2-3.4); LYMPH% 52.8 % (20.5-51.1); MCH 29.9 PG (27-31); MCHC 32.8 g/dL (33-37); MCV 91.1 FL (81-99); MONO% 12.6 % (1.7-9.3); MPV 9.7 FL (7.4-10.4); NEUT% 33.1 % (42.2-75.2); PLT 149 X1000 (130-400); RBC 3.71 XMIL (4.2-5.4); RDW 15.7 % (11.5-14.5); WBC 6.33 X1000 (4.8-10.8)
[2018-10-19] MEDS: XANAX PO PRN (04:59)
--- NOTE | 2018-10-19 05:02 | EKG Report ---
Test Performed on : 10/19/2018 04:59:43 AM Test Reason : 14 beat run of v-tach per telemetry Blood Pressure : / mmHG Vent. Rate : 084 BPM Atrial Rate : 084 BPM P-R Int : 182 ms QRS Dur : 168 ms QT Int : 422 ms P-R-T Axes : 054 -31 102 degrees QTc Int : 498 ms Sinus rhythm. with occasional premature ventricular complexes. Left axis deviation Left bundle branch block Abnormal ECG When compared with ECG of 15-OCT-2018 14:05, (Unconfirmed) Left bundle branch block has returned Confirmed by Eric CHAPA, Tra Ordonez ([id number]) on 10/26/2018 9:25:50 PM
[2018-10-19 05:35] LABS: CALCIUM 8.7 mg/dL (8.8-10.2); CREATININE 1.3 mg/dL (0.5-0.9); MAGNESIUM 1.9 mg/dL (1.5-2.7); POTASSIUM 4.2 mmol/L (3.5-5.1)
[2018-10-19] MEDS: PRILOSEC PO SCH (06:26)
[2018-10-19] MEDS: HUMALOG SUBQ SCH ×3 (06:26→16:06)
[2018-10-19] MEDS: ZOFRAN IV PRN (07:58)
[2018-10-19] MEDS: ASPIRIN EC PO SCH (08:01)
[2018-10-19] MEDS: COREG PO SCH (08:01)
[2018-10-19] MEDS: CLARITIN PO SCH (08:01)
[2018-10-19] MEDS: PRINIVIL PO SCH (08:02)
[2018-10-19] MEDS: MAG-OX PO SCH (08:02)
[2018-10-19] MEDS: MIRALAX PO SCH (08:03)
[2018-10-19] MEDS: LACTULOSE PO SCH (08:03)
[2018-10-19] MEDS: NORCO-10 PO PRN (08:19)
[2018-10-19] MEDS: MUCINEX DM PO SCH (10:38)
[2018-10-19] MEDS: TRESIBA FLEXTOUCH U-100 SUBQ SCH (10:39)
[2018-10-19 15:42] VITALS: BP 114/62
[2018-10-19] MEDS: LEVAQUIN 750 MG/D5W 750 MG/150 ML IVPB IV SCH (16:06)
--- NOTE | 2018-10-20 12:55 | DISCHARGE SUMMARY ---
ADMISSION DATE: 10/15/2018 DISCHARGE DATE: 10/19/2018 DISCHARGE DIAGNOSES: 1. Neutropenia, resolved. 2. Acute bronchitis, improved. 3. General weakness, improved. 4. Hypotension, resolved. 5. Ovarian and liver cancer, aware. The patient is being followed by [facility]. 6. Diabetes mellitus type 2. 7. Hypertension. CONSULTATIONS: Dr. Matthews from Hematology/Oncology. PROCEDURES: 1. Chest x-ray done on admission showed cardiomegaly and low lung volumes. 2. Doppler of both lower extremities showed no evidence of acute deep or superficial venous thrombosis of bilateral lower extremities. 3. Lung V/Q scan showed negative for pulmonary embolism. HOSPITAL COURSE: In brief, this is a 62-year-old female with past medical history of liver and ovarian cancer currently on chemotherapy, who was apparently diagnosed with upper respiratory infection, bronchitis and asthma exacerbation two days prior to the chemo. So, she was given Augmentin and Medrol Dosepak, but unfortunately that did not help too much, so she decided to present to the emergency department. She was admitted for acute bronchitis. She was placed on antibiotics, in this case Levaquin, also IV steroids and breathing treatments. Patient started feeling better. We noticed also that this patient was neutropenic, so we consulted Hematology. They did not provide any growth factor support because at the time that they see the patient the neutrophil count was back to normal. The patient was feeling fine, complaining of some anxiety. At the end of her hospitalization, today patient is going to be released in stable condition. We will provide antibiotics, steroids and medication for anxiety. DISCHARGE PHYSICAL EXAMINATION: Vital Signs: Temperature 98.3 degrees, heart rate 80, respiratory 15, blood pressure 114/62, O2 saturation 95% on room air. General: This is a chronically ill-appearing, 62-year-old female, lying in bed in no acute distress. Cardiovascular exam: S1, S2 heard. No murmurs, gallops, or rubs. Regular rate and rhythm. Respiratory exam: Clear bilaterally to auscultation. No work of breathing or using accessory muscles. Abdomen: Soft, nontender to palpation. Bowel sounds present. No organomegaly. Extremities: No clubbing, cyanosis or edema. Peripheral pulses present in both legs. Neurological exam: The patient is alert and oriented x3. Moves 4 extremities. DISCHARGE DISPOSITION: Home to self-care. LIST OF MEDICATIONS: 1. Coreg 6.25, one tablet p.o. b.i.d. 2. Torsemide 80 mg one tablet p.o. every 48 hours. 3. Levofloxacin 750 mg one tablet p.o. daily for a week. 4. Medrol Dosepak as directed. 5. MiraLAX one pack p.o. daily. 6. Xanax 0.5 mg one tablet p.o. 3 times per day as needed for anxiety. 7. Lexapro 10 mg one tablet p.o. daily. 8. Aspirin 1 tablet p.o. daily. 9. Benadryl 2 tablets p.o. at bedtime. 10. [place] 10 mg one tablet p.o. 2 times per day as needed for pain. 11. Lisinopril 1 tablet p.o. daily. 12. Zanaflex 1 tablet p.o. three times per day. 13. Trospium chloride 1 capsule p.o. daily. 14. Lipitor 10 mg 1 tablet p.o. daily. 15. Omeprazole 20 mg 1 tablet p.o. daily. 16. Ferrous sulfate 325 mg one tablet p.o. daily. 17. DuoNeb 1 inhalation as needed every 4 hours. 18. Loratadine 10 mg 1 tablet p.o. daily. 19. Zofran 8 mg one tablet p.o. 2 times per day as needed. 20. Ozempic 0.25 mg subcutaneous as directed. 21. Tresiba 30 units subcutaneous daily. 22. Tramadol 1 tablet p.o. every 6 hours as needed. TIME SPENT DISCHARGING THIS PATIENT: 33 minutes. cc: Malcom Colorado MD
== END 2018-10-19 17:45 | disposition home or self-care (01) | DRG 202 ==
LOC: SUPCPDRO → ED 08:37 → SUATTDRO 18:07 → EDIPHOLD 18:07 → ICU 20:49 → 2N 10-16 09:45
PROVIDERS: ATTEND Internal Medicine

== ENCOUNTER 2019-03-20 10:12 | Inpatient (IN) ==
[2019-03-20] MEDS ORDERED: SENOKOT PO PRN (12:37)
[2019-03-20] MEDS ORDERED: XANAX PO PRN (12:37)
[2019-03-20] MEDS ORDERED: TYLENOL PO PRN (12:38)
[2019-03-20] MEDS ORDERED: NS 1,000 ML IV SCH (12:45)
[2019-03-20] MEDS: NORCO-10 PO PRN ×2 (13:31→19:10)
[2019-03-20 13:49] LABS: ALBUMIN 2.8 g/dL (3.5-5.0); CALCIUM 8.7 mg/dL (8.8-10.2); CREATININE 1.2 mg/dL (0.5-0.9); MAGNESIUM 2.1 mg/dL (1.5-2.7); POTASSIUM 4.3 mmol/L (3.5-5.1); TOTAL BILIRUBIN 0.3 mg/dL (0.20-1.00)
[2019-03-20 14:22] LABS: HEMATOCRIT 27.5 % (37.0-47.0); HEMOGLOBIN 8.3 g/dL (12.0-16.0); MCH 30.5 PG (27-31); MCHC 30.2 g/dL (33-37); MCV 101.1 FL (81-99); RBC 2.72 XMIL (4.2-5.4); RDW 12.4 % (11.5-14.5); WBC 7.15 X1000 (4.8-10.8)
[2019-03-20] MEDS: ZOFRAN IV PRN ×2 (15:05→19:10)
[2019-03-20] MEDS: LOVENOX SUBQ SCH (17:22)
[2019-03-20] MEDS ORDERED: ULTRAM PO PRN (17:40)
[2019-03-20] MEDS: NS 1,000 ML IV SCH (20:06)
[2019-03-20] MEDS: HUMALOG (PARKWAY) SUBQ SCH (20:37)
[2019-03-20] MEDS: PRILOSEC PO SCH (20:37)
[2019-03-20] MEDS: LIPITOR PO SCH (20:37)
--- NOTE | 2019-03-20 21:35 | HISTORY AND PHYSICAL ---
CHIEF COMPLAINT: Fatigue. HISTORY OF PRESENT ILLNESS: Patient is a very pleasant 63-year-old female who just recently underwent surgical intervention for her cancer. She has chemotherapy. She presented to the office today, appeared weak, tired and fatigued. States that she has been having difficulty caring for herself. In the office, her blood pressure was 80 systolic, and therefore we asked her to come to the hospital. PAST MEDICAL HISTORY: Significant for recent neutropenia, chronic bronchitis, generalized weakness, recent hypotension. She was in October for similar. History of ovarian and liver cancer, diabetes, congestive heart failure with a pacemaker and defibrillator, cardiomegaly and ventricular dysrhythmias. PAST SURGICAL HISTORY: Cataract removal, gastric bypass, pacemaker defibrillator, ovarian cancer surgery. SOCIAL HISTORY: Patient does smoke marijuana daily. Denies alcohol or tobacco use. ALLERGIES: States Celebrex causes vomiting and blood pressure issues. She is also allergic to nuts. REVIEW OF SYSTEMS: As noted above. Patient denies any fevers but states she has felt chilled. She has felt achy, tired, fatigued. Denies chest pain, palpitations. Denies dysuria, frequency, or urgency. States she has not been vomiting but has felt nauseated, weak, has not had a normal oral intake. Denies headaches, blurred vision, change in vision. She is actually currently in a wheelchair when she typically walks in the office. Denies constipation, melena, hematochezia, dysuria and frequency. PHYSICAL EXAMINATION: VITAL SIGNS: Reviewed. She is afebrile. Pulse 80s to 90s. Blood pressure 80-90 systolic. GENERAL: Patient is awake, alert. She is pleasant. She is in mild distress. HEENT: Normocephalic. NECK: Supple. CARDIOVASCULAR: Regular rate. CHEST: Clear. Nonlabored. ABDOMEN: Soft. Diffusely tender. EXTREMITIES: Moves all extremities. NEUROLOGIC: No changes. LABORATORY DATA: H and H 8 and 27 with her most recent on history October being , creatinine stable at 1.2, albumin low at 2.8. PLAN: We are going to admit patient to the hospital, place her on IV fluids, recheck her hemoglobin and hematocrit in the morning. Certainly if it drops with fluids, then we may need to transfuse but currently is stable. Place her on sliding scale insulin. Restart her home medications but obviously will hold her blood pressure medicine of Coreg and anything else that would drop her blood pressure at the moment. MEDICATIONS: Coreg 6.25 b.i.d., torsemide 80, Xanax, Lexapro, Benadryl, [place] p.r.n., lisinopril, Lipitor 10, omeprazole 20, iron sulfate, Zofran, [*] Tresiba and tramadol. cc: Bret Rodriguez MD
[2019-03-21] MEDS: NORCO-10 PO PRN ×3 (03:11→18:00)
[2019-03-21] MEDS: NS 1,000 ML IV SCH (05:20)
[2019-03-21] MEDS: HUMALOG (PARKWAY) SUBQ SCH ×4 (06:13→21:34)
[2019-03-21] MEDS: PRILOSEC PO SCH ×2 (06:14→20:27)
[2019-03-21] MEDS ORDERED: ZOFRAN ODT PO PRN (07:03)
[2019-03-21] MEDS ORDERED: TESSALON PO PRN (07:03)
[2019-03-21 07:25] LABS: HEMOGLOBIN 7.8 g/dL (12.0-16.0); MCH 30.7 PG (27-31); MCV 102.4 FL (81-99); MPV 10.4 FL (7.4-10.4); RBC 2.54 XMIL (4.2-5.4); RDW 12.5 % (11.5-14.5); WBC 6.55 X1000 (4.8-10.8)
[2019-03-21 07:26] LABS: AGAP 10; ALBUMIN 2.7 g/dL (3.5-5.0); ALKALINE PHOSPHATASE 90 U/L (32-104); BUN 12 mg/dL (8-22); CALCIUM 8.2 mg/dL (8.8-10.2); CHLORIDE 104 mmol/L (98-107); COSMO 281; CREATININE 0.9 mg/dL (0.5-0.9); ESTIMATED GFR > 60; GLUCOSE 93 mg/dL (70-104); GOT 14 U/L (10-30); GPT 10 U/L (10-36); POTASSIUM 4.2 mmol/L (3.5-5.1); SODIUM 141 mmol/L (136-145); TCO2 27 mmol/L (25-35)
[2019-03-21] MEDS ORDERED: NS 500 ML IV ONE (08:49)
[2019-03-21] MEDS ORDERED: NON-FORMULARY MED (Omeprazole 40 MG) PO SCH (09:00)
[2019-03-21] MEDS: LANTUS INSULIN SUBQ SCH (09:30)
[2019-03-21] MEDS: ZOFRAN IV PRN ×2 (09:31→18:01)
[2019-03-21] MEDS: ASPIRIN EC PO SCH (09:32)
[2019-03-21] MEDS: CLARITIN PO SCH (09:32)
[2019-03-21] MEDS: LEXAPRO PO SCH (09:32)
[2019-03-21] MEDS: LOVENOX SUBQ SCH (09:32)
[2019-03-21] MEDS: MAG-OX PO SCH ×2 (09:32→09:39)
[2019-03-21] MEDS: MIRALAX PO SCH (09:39)
[2019-03-21] MEDS: PATIENT'S OWN MED SUBQ SCH ×2 (14:06→14:28)
[2019-03-21] MEDS: LIPITOR PO SCH (20:27)
[2019-03-21] MEDS ORDERED: BENADRYL PO SCH (21:00)
--- NOTE | 2019-03-21 22:55 | PROGRESS NOTE ---
DATE: 03/21/2019 SUBJECTIVE: Patient notes she feels tremendously better. She is still fatigued a little bit, still short of breath. Denies any fevers or chills. Denies any blood in her stool, urine, or otherwise. PHYSICAL EXAMINATION: Temperature 98 degrees, pulse 69, respiratory rate 18, BP 101/53.General: Patient is pleasant, currently in no respiratory distress. HEENT: Normocephalic. Neck: Supple. Cardiovascular: Regular rate. Chest: Clear. Abdomen: Soft, nondistended, nontender. Extremities: Moves all extremities. Neurologic: No focal changes. Skin: Warm, dry. No rashes. ASSESSMENT: 1. Anemia. Her hemoglobin and hematocrit is lower than her usual. It actually dropped a little bit to 7 and 23, after fluid rehydration. 2. Hypotension in a patient normally on Coreg secondary to her hemoglobin and hematocrit being low. 3. Fatigue. 4. Shortness of breath. 5. Chronic anxiety, depression. 6. Recent surgical intervention for her ovarian cancer. 7. Diabetes. 8. Congestive heart failure. PLAN: We are going to not give her anymore fluids at this point. We are going to type and cross to transfuse. Her hemoglobin and hematocrit has dropped after her surgery and she is not improved. We will continue to follow. Further orders as needed. Hopefully home tomorrow if her symptoms improve. cc: Bret Rodriguez MD
[2019-03-22] MEDS: NORCO-10 PO PRN ×2 (01:53→11:37)
[2019-03-22] MEDS: HUMALOG (PARKWAY) SUBQ SCH ×2 (06:27→10:58)
[2019-03-22 07:13] LABS: HEMATOCRIT 36.5 % (37.0-47.0); HEMOGLOBIN 11.4 g/dL (12.0-16.0); MCH 30.7 PG (27-31); MCHC 31.2 g/dL (33-37); MCV 98.4 FL (81-99); MPV 10.1 FL (7.4-10.4); RBC 3.71 XMIL (4.2-5.4); RDW 14.5 % (11.5-14.5); WBC 9.36 X1000 (4.8-10.8)
[2019-03-22 07:32] LABS: CALCIUM 8.9 mg/dL (8.8-10.2); POTASSIUM 4.3 mmol/L (3.5-5.1); TOTAL BILIRUBIN 0.5 mg/dL (0.20-1.00); TOTAL PROTEIN 6.5 g/dL (6.3-8.3)
[2019-03-22 08:12] VITALS: BP 103/48
[2019-03-22] MEDS: ASPIRIN EC PO SCH (08:29)
[2019-03-22] MEDS: PRILOSEC PO SCH (08:29)
[2019-03-22] MEDS: CLARITIN PO SCH (08:29)
[2019-03-22] MEDS: LANTUS INSULIN SUBQ SCH (08:29)
[2019-03-22] MEDS: MAG-OX PO SCH (08:30)
[2019-03-22] MEDS: LOVENOX SUBQ SCH (08:30)
[2019-03-22] MEDS: LEXAPRO PO SCH (08:30)
[2019-03-22] MEDS: MIRALAX PO SCH (08:30)
--- NOTE | 2019-03-23 10:59 | DISCHARGE SUMMARY ---
ADMISSION DATE: 03/20/2019 DISCHARGE DATE: 03/22/2019 ADMITTING DIAGNOSES: 1. Anemia. 2. Hypotension. 3. Fatigue. 4. Shortness of breath. 5. Chronic anxiety and depression. 6. Recent surgical intervention for her ovarian cancer. 7. Diabetes. 8. Congestive heart failure. DISCHARGE DIAGNOSES: 1. Anemia. 2. Hypertension. 3. Fatigue. 4. Shortness of breath. 5. Chronic anxiety and depression. 6. Recent surgical intervention for her ovarian cancer. 7. Diabetes. 8. Congestive heart failure. PROCEDURES AND FINDINGS: None. HOSPITAL COURSE: Ms. Mcdonnell is a 63-year-old female who just recently underwent intervention for ovarian cancer with chemotherapy. She presented to the MD office feeling weak and tired. She has been having trouble caring for herself. She was noted to have an 80 systolic blood pressure. She was asked to come to the ER at that time. Laboratory findings did note patient to have a hemoglobin of 8 and hematocrit of 27. She also was noted to have a low albumin of 2.8. The patient was admitted to the medical floor, was placed on IV fluid hydration. Hemoglobin did drop to 7.8. She was transfused 2 units of PRBCs. Hemoglobin is now increased to 11.4. The patient is feeling much better. Creatinine on admission was 1.2. It has improved to 1.0. Vital signs are stable after blood transfusion. The patient will discharge home today. She will follow up with her fish fryer, Dr. Bret Rodriguez, in 1 to 2 weeks or sooner if needed. The patient does have [facility]. DISCHARGE MEDICATIONS: 1. Benadryl 50 mg p.o. at bedtime. 2. Lipitor 10 mg p.o. at bedtime. 3. Lisinopril 10 mg p.o. at bedtime. 4. Colace with sennosides 2 tablets each p.o. at bedtime p.r.n. 5. Aspirin 81 mg p.o. daily. 6. Benzonatate 200 mg p.o. t.i.d. 7. Demadex 20 mg p.o. daily. 8. Loratadine 10 mg p.o. daily. 9. Lovenox 40 mg subcutaneous daily. 10. Mag-Ox 400 mg p.o. daily. 11. Hydrocodone/acetaminophen 1 tablet p.o. t.i.d. 12. Omeprazole 40 mg p.o. b.i.d. 13. Ozempic 0.25 mg subcutaneous every 7 days. 14. Tramadol 50 mg p.o. q.6 hours p.r.n. 15. Zofran 8 mg p.o. t.i.d. p.r.n. 16. Coreg 6.25 mg p.o. b.i.d. 17. Lexapro 10 mg p.o. daily. 18. MiraLAX 17 g p.o. daily. 19. Xanax 0.5 mg p.o. t.i.d. p.r.n. DISCHARGE DIET: Patient is to resume diet as tolerated. DISCHARGE ACTIVITY: Patient is to resume activity as tolerated. DISCHARGE DISPOSITION: Patient is to discharge home with self care. Patient has [facility]. The patient is to follow with her fish fryer, Dr. Bret Rodriguez, in 1 to 2 weeks or sooner if needed. The patient is to notify her fish fryer, Dr. Bret Rodriguez, with all other further questions and concerns. Dictated by NEIDA Forrest for Bret Rodriguez MD cc: Bret Rodriguez MD
--- NOTE | 2019-03-23 21:23 | DISCHARGE SUMMARY ---
ADMISSION DATE: 03/20/2019 DISCHARGE DATE: 03/22/2019 ADDENDUM: Patient was seen and examined by myself. Full note dictated and discussed with nurse practitioner. On discharge, patient is awake, alert. Notes she is feeling a lot better after a transfusion. Her jerrell have been removed with no dehiscence of the wound. Greater than 30 minutes was spent. cc: Bret Rodriguez MD
== END 2019-03-22 12:16 | disposition home health service (06) | DRG 812 ==
LOC: P.DIRADM 10:12 → P.MEDSURG 10:35
PROVIDERS: ATTEND Family Medicine

== ENCOUNTER 2019-04-25 11:02 | Inpatient (IN) ==
[2019-04-25] MEDS ORDERED: TYLENOL PO PRN (11:27)
[2019-04-25] MEDS ORDERED: ZOFRAN IV PRN (11:27)
[2019-04-25] MEDS: NS 1,000 ML IV SCH ×2 (11:58→22:30)
[2019-04-25 12:36] LABS: BASO# 0.01 X1000 (0.0-0.2); BASO% 0.1 % (0.0-0.8); EOS# 0.05 X1000 (0.0-0.7); EOS% 0.6 % (0.0-10.0); HEMATOCRIT 30.7 % (37.0-47.0); HEMOGLOBIN 9.5 g/dL (12.0-16.0); IMM GRAN# 0.01 X1000 (0.0-0.04); IMM GRAN% 0.1 % (0.0-0.5); LYMPH# 1.26 X1000 (1.2-3.4); MCHC 30.9 g/dL (33-37); MCV 93.6 FL (81-99); MONO# 0.76 X1000 (0.11-0.59); MONO% 8.4 % (1.7-9.3); MPV 10.6 FL (7.4-10.4); NEUT# 6.92 X1000 (1.4-6.5); NEUT% 76.8 % (42.2-75.2); PLT 304 X1000 (130-400); RBC 3.28 XMIL (4.2-5.4); RDW 13.5 % (11.5-14.5); WBC 9.01 X1000 (4.8-10.8)
--- NOTE | 2019-04-25 12:50 | EKG Report ---
Test Performed on : 04/25/2019 12:34:01 PM Test Reason : HYPOTENSION Blood Pressure : / mmHG Vent. Rate : 082 BPM Atrial Rate : 082 BPM P-R Int : 184 ms QRS Dur : 168 ms QT Int : 422 ms P-R-T Axes : 049 -22 088 degrees QTc Int : 493 ms Sinus rhythm. with premature supraventricular complexes. Left bundle branch block Abnormal ECG When compared with ECG of 19-OCT-2018 04:59, premature ventricular complexes. are no longer present premature supraventricular complexes. are now present Confirmed by Bo Melo MD ([id number]) on 04/27/2019 1:17:34 AM
[2019-04-25 12:52] LABS: ALBUMIN 2.8 g/dL (3.5-5.0); CALCIUM 8.8 mg/dL (8.8-10.2); CREATININE 1.3 mg/dL (0.5-0.9); MAGNESIUM 2.4 mg/dL (1.5-2.7); POTASSIUM 4.6 mmol/L (3.5-5.1); TOTAL BILIRUBIN 0.3 mg/dL (0.20-1.00)
--- NOTE | 2019-04-25 13:01 | HISTORY AND PHYSICAL ---
PRIMARY CARE PROVIDER: Dr. Rodriguez. ONCOLOGIST: [facility] in [place]. CHIEF COMPLAINT: Dehydration, weakness, abdominal pain. HISTORY OF PRESENT ILLNESS: Ms. Mcdonnell is a 63-year-old, -Stateless female who carries a past medical history of metastatic uterine cancer currently on chemotherapy at [facility], recently had a total hysterectomy at [facility] in February, congestive heart failure, asthma, pacemaker/defibrillator for arrhythmia. She reported, last she had been feeling fine since her last discharge. However, she started to become weak and this weakness has gradually increased. [employer] came out yesterday and gave her a bag of fluids. She stated that she initially felt better. However, she woke up this morning feeling worse than she has felt since . She reports more weakness as well as shortness of breath with activity. She states she can barely walk from her living room or bedroom to the bathroom without having to stop and take a minute to recover. She reports hot and cold since having chemotherapy, as well as nausea and vomiting with food since chemotherapy. She went to Dr. Rodriguez's office today to be evaluated. She was found to be hypotensive and dehydrated, and was sent to [facility] for direct admission to receive IV fluids. She continues to complain of this excruciating abdominal pain that she has had since surgery that is almost constant and sharp in nature. She also reports back pain but that is normal secondary to her bulging disk. She does not report any headache, cough, sore throat. No sick contacts. No recent travel. No chest type pain. However, she states she does have a pacemaker/defibrillator so sometimes she does feel some palpitations. She denies any calf pain when walking. We are currently pending laboratory and CT of the abdomen and pelvis. PAST MEDICAL HISTORY: Recent neutropenia, chronic bronchitis, generalized weakness with recent hypotension, history of uterine cancer with metastasis, diabetes, congestive heart failure with pacemaker/defibrillator, cardiomegaly, and ventricular dysrhythmias. PAST SURGICAL HISTORY: A total hysterectomy on 03/07/2019, cataract removal, gastric bypass, pacemaker/defibrillator. PAST SOCIAL HISTORY: Smokes marijuana daily. No alcohol, tobacco, or illicit drug use. She does have [employer]. Supportive daughter at bedside. ALLERGIES: To Celebrex which causes vomiting and blood pressure issues, as well as allergic to nuts. REVIEW OF SYSTEMS: Twelve-point review of systems was completed and negative except for those mentioned in the HPI. PHYSICAL EXAMINATION: VITAL SIGNS: Temperature is 98.1 degrees, heart rate 80, respirations 18, blood pressure 100/64, O2 saturation is 100% on room air. GENERAL: Ms. Mcdonnell is an ill-appearing, 63-year-old, -Stateless female who is lying in the bed, in no acute distress. HEENT: Atraumatic, normocephalic. PERRL. Neck is supple. Trachea midline. Mucous membranes are dry. CARDIOVASCULAR: S1, S2 appreciated. No murmurs, gallops, or rubs noted. RESPIRATORY: Lungs sound clear bilaterally. Breathing is somewhat shallow but no rales, rhonchi, or wheezes noted. EXTREMITIES: Lower extremities, bilateral pedal pulses are palpable. She denies any calf pain. No lower extremity edema. No signs of clubbing or cyanosis. NEUROLOGIC: No focal deficits noted. DATA: Laboratory data pending, diagnostics pending. ASSESSMENT AND PLAN: 1. Hypotension and dehydration. We will continue with the 2 L bolus, then normal saline at 150 mL per hour. We will check her laboratory data and treat accordingly. 2. Intractable abdominal pain after having a hysterectomy back in February. We will do a CT of the abdomen and pelvis to rule out any abnormalities. We will try pain regimen once her boluses are in. 3. Uterine cancer with metastasis. She is currently under the care at [facility], undergoing chemotherapy. Recently underwent a total hysterectomy. She was supposed to have chemotherapy yesterday but was too weak to go. 4. Bulging disks with back pain. Aware. 5. Diabetes mellitus. We will place her on sliding scale with patterned blood sugars. 6. Congestive heart failure with pacemaker/defibrillator, cardiomegaly, and ventricular arrhythmias. We will place her on telemetry and check an electrocardiogram. No complaints of chest pain or any fluid volume overload. She is dehydrated. 7. Recent bout of anemia after a total hysterectomy. We will check her blood counts. Transfuse if needed. 8. Further recommendation to follow physician evaluation, laboratory and diagnostic data. Dictated by NEIDA Britt for Bret Rodriguez MD cc: Bret Rodriguez MD
--- NOTE | 2019-04-25 13:41 | Diag Imaging Result Doc PS360 ---
CT ABDOMEN/PELVIS W/O CONTRAST - 04/25/2019 INDICATION: continued abd pain after hysterectomy COMPARISON: None FINDINGS: There are small bilateral pleural effusions right greater than left. There are pacemaker leads in the heart. Heart size is borderline. No dense consolidations in the lung bases. There is moderate to severe abdominal ascites. There are some focal contained oval subcapsular fluid collections at the liver dome. The largest measures approximately 8.5 x 5 cm. There are gastric bypass changes. No bowel obstruction. No radiodense renal stones. No hydronephrosis or hydroureter. Normal appendix. Urinary bladder and rectum are normal. There are moderate degenerative changes of the spine. No acute or suspicious bony lesion. IMPRESSION: Bilateral pleural effusions. Ascites. Subcapsular fluid collection at the liver dome, nonspecific. This exam was performed using automated exposure control, adjustment of mA or kV according to patient size, and/or use of iterative reconstruction technique Electronically signed by Osiel Melchor 04/25/2019 1:38 PM
[2019-04-25] MEDS ORDERED: PERICOLACE PO PRN (13:47)
[2019-04-25] MEDS ORDERED: BENADRYL PO PRN (13:53)
[2019-04-25] MEDS: XANAX PO PRN (13:59)
[2019-04-25] MEDS: HUMALOG (PARKWAY) SUBQ SCH ×2 (15:40→23:44)
[2019-04-25] MEDS: NORCO-10 PO PRN (18:42)
[2019-04-25] MEDS: PRILOSEC PO SCH (23:44)
--- NOTE | 2019-04-26 00:14 | HISTORY AND PHYSICAL ---
ADDENDUM: Patient presented to the office, subsequently admitted to the hospital with dehydration and abdominal pain. Does have some hypotension. We placed on IV fluid bolus and then will continue normal saline. She has intractable abdominal pain. A CT does show some pleural effusions, this is certainly concerning given that she does have uterine cancer. We will continue to follow. Certainly may need a thoracentesis to rule out cause of her current pleural effusion. cc: Bret Rodriguez MD
[2019-04-26] MEDS: NORCO-10 PO PRN ×4 (00:47→22:25)
[2019-04-26] MEDS: XANAX PO PRN ×2 (00:47→18:25)
[2019-04-26] MEDS: HUMALOG (PARKWAY) SUBQ SCH ×4 (06:19→21:35)
[2019-04-26 06:25] LABS: ALBUMIN 2.5 g/dL (3.5-5.0); CALCIUM 8.3 mg/dL (8.8-10.2); MAGNESIUM 2.3 mg/dL (1.5-2.7); POTASSIUM 4.6 mmol/L (3.5-5.1); TOTAL BILIRUBIN 0.3 mg/dL (0.20-1.00); TOTAL PROTEIN 5.4 g/dL (6.3-8.3)
[2019-04-26 07:58] LABS: HEMATOCRIT 27.7 % (37.0-47.0); HEMOGLOBIN 8.8 g/dL (12.0-16.0); MCHC 31.8 g/dL (33-37); MCV 94.5 FL (81-99); MPV 11.3 FL (7.4-10.4); RBC 2.93 XMIL (4.2-5.4); RDW 13.6 % (11.5-14.5); WBC 7.2 X1000 (4.8-10.8)
[2019-04-26] MEDS: PRILOSEC PO SCH ×2 (08:12→21:34)
[2019-04-26] MEDS: LEXAPRO PO SCH (08:12)
[2019-04-26] MEDS ORDERED: NS 1,000 ML IV SCH (08:45)
[2019-04-26] MEDS ORDERED: ALDACTONE PO SCH (09:00)
[2019-04-26] MEDS: NS 1,000 ML IV SCH ×2 (11:58→18:15)
--- NOTE | 2019-04-26 15:09 | Diag Imaging Result Doc PS360 ---
US ABDOMEN-COMPLETE - 04/26/2019 INDICATION: ascites TECHNIQUE: Llamas scale, color Doppler, and duplex evaluation of the abdomen was performed. Standard protocol. COMPARISON: CT abdomen 04/25/2019. FINDINGS: The liver echotexture appears normal,. There is a 6.7 x 6.4 x 8.4 cm complex mixed echogenicity mass abutting the right lobe of the liver. This corresponds with the subcapsular mass noted on recent CT. Considerations would include hematoma, metastasis, or primary hepatic neoplasm. Recommend correlation with CT or MRI of the abdomen with contrast. 04/25/2019. The visualized portions of the IVC and aorta appear normal. The pancreas is poorly visualized due to bowel gas artifact. The gallbladder is free of stones and sludge has a normal caliber wall. There is indeterminate echogenicity anterior to the gallbladder. The common bile duct measures 7 mm. The portal vein is patent with hepatopetal flow. Spleen is unremarkable. The kidneys appear normal bilaterally. There is no hydronephrosis. There is moderate ascites within the abdomen and pelvis IMPRESSION: 1.Complex liver mass right lobe. Considerations would include hematoma, metastasis, primary hepatic neoplasm. Recommend CT or MRI of the abdomen with IV contrast. 2.Indeterminate echogenicity is anterior to the gallbladder. Electronically signed by Krissy Parsons 04/26/2019 3:06 PM
--- NOTE | 2019-04-26 19:48 | PROGRESS NOTE ---
DATE: 04/26/2019 SUBJECTIVE: Patient notes she still has lots of abdominal pain. Denies fevers or chills. Does have some mild cough. PHYSICAL EXAMINATION: Vital Signs: Reviewed. Temp 98 degrees, pulse 70, BP 110/66. General: Patient is pleasant she is lying in the bed. She is in no distress. HEENT: Normocephalic. Neck: Supple. Cardiovascular: Regular rate. Chest: Clear. No current crackles no rhonchi. Abdomen: Soft. Diffusely tender. Extremities: Moves all extremities. ASSESSMENT: 1. Ascites. 2. Pleural effusion. 3. Hypotension, resolved. 4. Dehydration, resolved. 5. Uterine cancer with metastases, which is likely the cause of her ascites as well as pleural effusions. 6. Congestive heart failure. PLAN: We will continue patient in the hospital, continue Lasix for today given that her BUN is still elevated and we will re-evaluate in the morning. We will check an ultrasound of her abdomen. Certainly concerned that her ascites is due to malignancy. We will follow. cc: Bret Rodriguez MD
[2019-04-27] MEDS: NS 1,000 ML IV SCH (02:30)
[2019-04-27] MEDS: NORCO-10 PO PRN ×3 (04:55→18:08)
[2019-04-27] MEDS: HUMALOG (PARKWAY) SUBQ SCH ×4 (06:03→22:54)
[2019-04-27] MEDS ORDERED: NS 1,000 ML IV SCH (08:27)
--- NOTE | 2019-04-27 09:01 | Diag Imaging Result Doc PS360 ---
EXAM: CHEST-2 VIEWS INDICATION: hypoxia TECHNIQUE: 2 views COMPARISON: 10/17/2018 FINDINGS: There is mild increased opacity at the right mid and right lower lung zone that is somewhat platelike and likely represents atelectasis. However, component of pneumonia is possible. Please correlate clinically. There is no discrete pleural fluid collection or pneumothorax. There is stable cardiomegaly. Central vasculature is unremarkable. There is a stable defibrillator/pacemaker. IMPRESSION: Mild atelectasis at the mid and lower lung zone on the right +/- pneumonia. Electronically signed by Ty Newton 04/27/2019 8:58 AM
[2019-04-27] MEDS: LEXAPRO PO SCH (09:46)
[2019-04-27] MEDS: ALDACTONE PO SCH ×2 (09:46→20:01)
[2019-04-27] MEDS: PRILOSEC PO SCH ×2 (09:46→20:01)
[2019-04-27] MEDS: XANAX PO PRN (09:46)
[2019-04-27] MEDS ORDERED: MIRALAX PO ONE (09:46)
[2019-04-27] MEDS: ROCEPHIN 1 GM in NS 50 ML IV SCH (18:03)
[2019-04-28] MEDS: NORCO-10 PO PRN ×4 (00:07→20:52)
--- NOTE | 2019-04-28 02:01 | PROGRESS NOTE ---
DATE: 04/27/2019 SUBJECTIVE: Patient notes she is still having chest pain. Has a little bit of a cough. Denies fevers or chills. Still having some abdominal pain. PHYSICAL EXAMINATION: Vital Signs: Temperature 98 degrees, pulse 86, respiratory 20, BP 104/61. General: Patient is pleasant, in no distress. HEENT: Normocephalic. Neck: Supple. Cardiovascular: Regular rate. Chest: Clear. No crackles. Abdomen: Soft, diffusely tender. Extremities: Moves all extremities. ASSESSMENT: 1. Ascites. 2. Pleural effusion. 3. Abdominal pain. 4. Uterine cancer with metastases, currently on chemotherapy. 5. Bulging disks. 6. Diabetes. 7. Congestive heart failure. PLAN: The patient and her family seem to not quite understand the extent of her illness. She does have uterine cancer with metastases. She has ascites which would be expected to be secondary to her cancer. She also has pleural effusions, which again would be expected to be secondary to her cancer. However, when I attempted to discuss that with the family, they appear shocked that her cancer is "back." However, by their own admission she is currently undergoing chemotherapy although she could not go this week secondary to her generalized weakness. Regardless, her weakness appears to be improved and given her fluids, her BUN and creatinine both are improving. We are going to continue to follow. cc: Bret Rodriguez MD
[2019-04-28] MEDS: HUMALOG (PARKWAY) SUBQ SCH ×4 (06:16→21:46)
[2019-04-28] MEDS: LEXAPRO PO SCH (07:59)
[2019-04-28] MEDS: PRILOSEC PO SCH ×2 (07:59→20:42)
[2019-04-28] MEDS: ALDACTONE PO SCH ×2 (08:00→20:42)
[2019-04-28] MEDS ORDERED: LASIX IV SCH (09:45)
[2019-04-28] MEDS: XANAX PO PRN (12:31)
--- NOTE | 2019-04-28 16:36 | PROGRESS NOTE ---
DATE: 04/28/2019 SUBJECTIVE: The patient notes she is still having some chest pain with deep inspiration and still having some abdominal pain. Denies any fevers or chills. PHYSICAL EXAM: Temperature 97.9 degrees, pulse 88, respiratory rate 18, BP 102/84.General: The patient is pleasant, no distress, lying in the bed. HEENT: Normocephalic. Neck: Supple. Cardiovascular: Regular rate. Chest: Clear. Abdomen: Soft. Diffusely tender. Extremities: Moves all extremities. ASSESSMENT: 1. Ascites. 2. Pleural effusion. 3. Uterine cancer with metastases with metastasis to her liver. 4. Acute renal insufficiency. Creatinine 1.3 currently back to her baseline at 1.0. 5. Dehydration, resolved. PLAN: I attempted to discuss with Miss Mcdonnell that even though the surgeon had told her "I got all the cancer," it is extremely highly unlikely that he removed the metastasis to her liver. Therefore, in fact, she still does have uterine cancer. That is the reason for the chemotherapy. We will continue to follow Lasix as needed. cc: Bret Rodriguez MD [facility]
[2019-04-28] MEDS: ROCEPHIN 1 GM in NS 50 ML IV SCH (17:16)
[2019-04-28] MEDS: LASIX PO SCH (20:51)
[2019-04-29] MEDS: NORCO-10 PO PRN ×3 (03:10→18:13)
[2019-04-29] MEDS: HUMALOG (PARKWAY) SUBQ SCH ×4 (06:03→20:09)
[2019-04-29 06:19] LABS: HEMATOCRIT 28.5 % (37.0-47.0); MCH 28.9 PG (27-31); MCHC 31.6 g/dL (33-37); MCV 91.6 FL (81-99); RBC 3.11 XMIL (4.2-5.4); RDW 13.6 % (11.5-14.5); WBC 8.83 X1000 (4.8-10.8)
[2019-04-29 06:30] LABS: ALBUMIN 2.7 g/dL (3.5-5.0); CALCIUM 8.8 mg/dL (8.8-10.2); CREATININE 1.3 mg/dL (0.5-0.9); MAGNESIUM 1.9 mg/dL (1.5-2.7); POTASSIUM 4.9 mmol/L (3.5-5.1); TOTAL BILIRUBIN 0.4 mg/dL (0.20-1.00); TOTAL PROTEIN 5.7 g/dL (6.3-8.3)
--- NOTE | 2019-04-29 07:34 | Diag Imaging Result Doc PS360 ---
EXAM: CHEST-2 VIEWS HISTORY: hypoxia TECHNIQUE: Two views COMPARISON: 04/27/2019 FINDINGS: The lungs are well expanded. There are small pleural effusions. The heart is mildly enlarged. No pulmonary edema. There is basilar atelectasis versus infiltrates. Left-sided pacemaker. IMPRESSION: Stable chest Electronically signed by Peng Edgar 04/29/2019 7:32 AM
[2019-04-29] MEDS: PRILOSEC PO SCH ×2 (09:12→20:08)
[2019-04-29] MEDS: ALDACTONE PO SCH ×2 (09:13→20:08)
[2019-04-29] MEDS: LASIX PO SCH ×2 (09:13→20:08)
[2019-04-29] MEDS: LEXAPRO PO SCH (09:13)
[2019-04-29] MEDS: MIRALAX PO SCH (09:13)
[2019-04-29] MEDS: OMNICEF PO SCH ×2 (12:15→20:07)
--- NOTE | 2019-04-29 12:21 | PROGRESS NOTE ---
DATE: 04/29/2019 SUBJECTIVE: The patient notes she is still having abdominal pain but states her cough, congestion, shortness of breath appear to be improving. She is starting to ambulate a little bit better, is drinking better. PHYSICAL EXAMINATION: Vital Signs: Reviewed. Temp 98 degrees, pulse 88, respiratory 20, BP 118/79. General: Patient is awake, pleasant, no distress. HEENT: Normocephalic. Neck: Supple. Cardiovascular: Regular rate. Chest: Clear, nonlabored, no crackles. No wheezing. Abdomen: Soft, nondistended. Extremities: Moves all extremities. Neurologic: No changes. ASSESSMENT: 1. Uterine cancer with liver metastasis. 2. Ascites. 3. Pleural effusion. 4. Volume depletion. 5. Pain. 6. Protein calorie malnutrition. 7. Diabetes. PLAN: We are going to continue patient in the hospital. Again discussed with her that her ascites and pleural effusion should be expected with her liver metastasis. She will need to follow up outpatient with her oncologist in [place]. We are going to continue antibiotics for now as she states that she is feeling better. Hopefully home over the next 1 or 2 days. cc: Bret Rodriguez MD
[2019-04-30] MEDS: NORCO-10 PO PRN ×4 (00:28→20:09)
[2019-04-30] MEDS: LASIX PO SCH ×2 (08:26→20:09)
[2019-04-30] MEDS: LEXAPRO PO SCH (08:26)
[2019-04-30] MEDS: MIRALAX PO SCH (08:26)
[2019-04-30] MEDS: PRILOSEC PO SCH ×2 (08:26→20:09)
[2019-04-30] MEDS: OMNICEF PO SCH ×2 (08:26→20:09)
[2019-04-30] MEDS: ALDACTONE PO SCH ×2 (08:26→20:09)
[2019-04-30] MEDS: HUMALOG (PARKWAY) SUBQ SCH ×4 (11:49→21:23)
[2019-04-30] MEDS: NS 1,000 ML IV SCH (12:31)
[2019-04-30] MEDS: XANAX PO PRN (14:36)
--- NOTE | 2019-04-30 17:50 | PROGRESS NOTE ---
DATE: 04/30/2019 SUBJECTIVE: The patient still complains of some abdominal pain. States she has not really been able to eat or drink, although, does have some him to water bottles in her room. Denies any cough, congestion, fevers or chills. PHYSICAL EXAMINATION: Vital Signs: Reviewed. Temp 97 degrees, pulse 90, respiratory rate 18, BP 109/56. General: Patient is awake, pleasant, no distress. She does appear to be in some pain, although, mildly. HEENT: Normocephalic. Neck: Supple. Cardiovascular: Regular rate. Chest: Clear. Abdomen: Soft. Extremities: Moves all extremities. Neurologic: No changes. ASSESSMENT: 1. Ascites. 2. Pleural effusion. 3. Uterine cancer with liver metastasis. 4. Chronic back pain with bulging disks. 5. Diabetes. 6. Congestive heart failure. PLAN: Overall, the patient is stable and improved. We are going to give her 1 more L fluid as she states she has not been drinking. We are going to continue pain control and we will follow. cc: Bret Rodriguez MD
[2019-05-01] MEDS: NS 1,000 ML IV SCH (00:05)
[2019-05-01] MEDS: NORCO-10 PO PRN ×3 (02:27→14:20)
[2019-05-01] MEDS: HUMALOG (PARKWAY) SUBQ SCH ×2 (06:27→12:00)
[2019-05-01] MEDS ORDERED: PRILOSEC PO SCH (07:00)
[2019-05-01] MEDS: ALDACTONE PO SCH (08:21)
[2019-05-01] MEDS: LASIX PO SCH (08:21)
[2019-05-01] MEDS: LEXAPRO PO SCH (08:21)
[2019-05-01] MEDS: MIRALAX PO SCH (08:21)
[2019-05-01] MEDS: OMNICEF PO SCH (08:21)
--- NOTE | 2019-05-01 09:07 | DISCHARGE SUMMARY ---
ADMISSION DATE: 04/25/2019 DISCHARGE DATE: 05/01/2019 PRIMARY CARE PHYSICIAN: Dr. Bret Rodriguez. ADMISSION DIAGNOSES: 1. Hypotension and dehydration. 2. Intractable abdominal pain after having a hysterectomy in February. 3. Uterine cancer with metastasis. 4. Bulging disk with back pain. 5. Diabetes. 6. Congestive heart failure with pacemaker/defibrillator, cardiomegaly, and ventricular arrhythmias. 7. Recent anemia after her total hysterectomy. DISCHARGE DIAGNOSES: 1. Ascites, improved. 2. Pleural effusion. 3. Uterine cancer with liver metastasis. 4. Chronic back pain with bulging disk. 5. Diabetes. 6. Congestive heart failure. SUMMARY OF FINDINGS: This is a 63-year-old, -Citizen Of [place] female who presented to the ER stating that she had begun feeling worse with more weakness and shortness of breath with activity, that she could barely walk from her living room to her bedroom, to the bathroom without having to stop and take a minute to recover. She reported feeling hot and cold since having chemotherapy, as well as nausea and vomiting with food since her chemotherapy. She had gone to her primary care physician's office to be evaluated and was found to be hypotensive and dehydrated. She was sent to [facility] as a direct admission. Received IV fluids. We did a CT of the abdomen and pelvis that showed bilateral pleural effusions and ascites with a subcapsular fluid collection at the liver dome that was nonspecific. We did an abdomen ultrasound that showed a liver mass in the right lobe and an indeterminate echogenicity in the anterior of the gallbladder. Chest x-ray on 04/29/2019 showed a stable chest. She has remained afebrile. White blood cell count is within normal limits. Her hypotension improved after fluid resuscitation and it is felt that she can safely be discharged home today with home health. DISCHARGE MEDICATIONS: Include Xanax 0.5 mg p.o. t.i.d. p.r.n., cefdinir 300 mg p.o. b.i.d. (#10 with no refills), diphenhydramine 50 mg p.o. at bedtime p.r.n., escitalopram 10 mg p.o. daily, Lasix 40 mg p.o. b.i.d., Braxton 10 one p.o. q.6 hours p.r.n., omeprazole 40 mg p.o. b.i.d., Senna Plus 2 p.o. at bedtime, spironolactone 25 mg p.o. b.i.d., aspirin 81 mg p.o. daily, atorvastatin 10 mg p.o. at bedtime, Tresiba 30 units subcutaneous daily, and torsemide 20 mg p.o. daily p.r.n. FOLLOWUP: She will need to follow up with her primary care physician in 1 to 2 weeks and call his office for an appointment. Again, she will have home health services. This is a 35 minute discharge. Dictated by NEIDA Andrade for Bret Rodriguez MD cc: NEIDA Andrade MD
[2019-05-01] MEDS: XANAX PO PRN (13:42)
[2019-05-01 15:49] VITALS: BP 97/58
--- NOTE | 2019-05-01 20:51 | DISCHARGE SUMMARY ---
ADMISSION DATE: 04/25/2019 DISCHARGE DATE: 05/01/2019 ADDENDUM: Patient seen and examined by myself. Full note dictated and discussed with nurse practitioner. On discharge, patient is awake, alert. She is still having some mild abdominal pain. She is having no respiratory issues. We are going to discharge her home. Unfortunately, I am certainly concerned that her pleural effusion as well as ascites is due to her known uterine cancer with metastases. Currently, she is improving. She is drinking okay. We will use Aldactone and Lasix and we will follow her. cc: Bret Rodriguez MD
== END 2019-05-01 17:04 | disposition home health service (06) | DRG 641 ==
LOC: P.DIRADM 11:02 → P.MEDSURG 11:22
PROVIDERS: ADMIT Family Medicine; ATTEND Family Medicine